=== PATIENT | female | born 1960 | race African-American/Black ===

== ENCOUNTER 2016-12-05 06:00 | Day surgery (SDC) | payer OTHER ==
[2016-12-02 14:13] VITALS: BMI 39.4
[2016-12-05] MEDS ORDERED: ePHEDrine SULFATE 50 MG/1 ML AMPULE ONE (07:15)
[2016-12-05] MEDS ORDERED: PROPOFOL 20 ML ONE ×4 (07:16)
[2016-12-05] MEDS ORDERED: SUCCINYLCHOLINE CHLORIDE 200 MG/10 ML VIAL ONE (07:16)
[2016-12-05] MEDS ORDERED: BUPIVACAINE HCL 0.25% 125 MG/50 ML VIAL ONE (07:18)
[2016-12-05] MEDS ORDERED: MIDAZOLAM HCL 2 MG/2 ML SINGLE DOSE VIAL ONE ×2 (07:18→07:50)
[2016-12-05] MEDS ORDERED: KETOROLAC TROMETHAMINE 30 MG/1 ML VIAL ONE (07:20)
[2016-12-05] MEDS ORDERED: LIDOCAINE HCL/PF 2% SDV 5ML VIAL ONE (07:20)
[2016-12-05] MEDS ORDERED: ONDANSETRON 4 MG/2 ML VIAL ONE (07:20)
[2016-12-05] MEDS ORDERED: ceFAZolin SODIUM 1 GM VIAL ONE (07:20)
[2016-12-05] MEDS ORDERED: BUPIVACAINE HCL/PF 0.25% (2.5MG/ML) 10 ML VIAL IJ ONE (08:22)
--- NOTE | 2016-12-05 08:57 | OP ---
Operative Note - Note: Operative Date: 12/05/16 Pre-Operative Diagnosis: right knee medial meniscal tear Operation: right knee arthroscopy with partial medial meniscectomy Post-Operative Diagnosis: Same as Pre-op Surgeon: Dave Monk Anesthesiologist/PIPE INSULATOR HELPER: Luigi Parry Anesthesia: Spinal Estimated Blood Loss (mls): 20 Operative Report Dictated: Yes
[2016-12-05] MEDS ORDERED: oxyCODONE HCL 5 MG TABLET PO PRN ×2 (09:57→10:01)
[2016-12-05] MEDS ORDERED: LACTATED RINGERS SOLUTION 1,000 ML IV SCH (10:00)
[2016-12-05] MEDS ORDERED: ONDANSETRON 4 MG/2 ML VIAL IVPUSH PRN (10:01)
[2016-12-05 10:04] VITALS: TEMP 97.9
[2016-12-05 11:34] VITALS: BP 122/78; PULSE 72
--- NOTE | 2016-12-05 15:58 | OP ---
DATE OF OPERATION: 12/05/2016 PREOPERATIVE DIAGNOSIS: Right knee medial meniscal tear. POSTOPERATIVE DIAGNOSIS: Right knee medial meniscal tear. PROCEDURE: Right knee arthroscopy with partial medial meniscectomy. SURGEON: Dave Monk MD AUTOMOTIVE PARTS COUNTER ASSISTANT: None. ANESTHESIA: Spinal. POSTOPERATIVE CONDITION: Stable. TOURNIQUET TIME: Twenty-six minutes. INDICATIONS: This is a pleasant 56-year-old female who has been suffering from medial knee pain. She was initially treated nonoperatively. However, her pain persisted and she changed her mind and wanted to pursue operative management. Operative risks were reviewed in detail including bleeding, infection, neurovascular injury, need for further surgery, postoperative pain and stiffness, progressive osteoarthritis. We discussed medical risks such as heart attack, stroke, DVT, PE and . We reviewed that the arthroscopy was used to treat the meniscus tear within the knee. There is some arthritis in the knee and this may continue to be symptomatic afterwards. We reviewed the use of perioperative DVT prophylaxis and perioperative antibiotic prophylaxis. I addressed all the patient's questions. She voiced understanding and elected to proceed. DESCRIPTION OF PROCEDURE: The patient was brought to the operating room where spinal anesthesia was administered. The patient was placed supine on the operating room table with care taken to pad all bony prominences. The right lower extremity was then prepped and draped in the usual sterile fashion. A preoperative dose of antibiotics was given and the usual timeout procedure was performed. The portal sites were then marked out and the skin was injected subcutaneously with 0.25% Marcaine. The limb was then elevated. A tourniquet was inflated to 250 mmHg. A lateral portal was now incised. The arthroscope was now passed into the knee. 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 Passing the arthroscope down to the notch demonstrated intact ACL and PCL. The arthroscope was then passed into medial compartment. Here, there was some streak wear along the medial femoral condyle. There was some slight fraying along the tibial surface cartilage as well. There was a complex tear extending throughout the body and posterior horn of the medial meniscus. Under spinal needle localization, a medial portal was now established. Utilizing meniscal biters as well as a shaver, this was debrided down to a stable base. The arthroscope was now passed into the lateral compartment. Here, there was some superficial fraying of the cartilaginous surfaces. The inner rim of the meniscus was frayed but no raji tear was identified. The probe was used to ensure the meniscus was stable. The inner rim was lightly touched with the shaver to debride the frayed surfaces. At this point, the excess fluid was drawn from the joint. The portals were sutured using 3-0 nylon. The tourniquet was let down. A compressive dressing was placed. The patient was transferred to the recovery room in stable condition. Francisca [id number]
== END 2016-12-05 12:00 | disposition home or self-care (01) ==
LOC: FASU 06:00
PROVIDERS: ATTEND Orthopaedic Surgery Sports Medicine
PROC: 0SBD4ZZ Excision of Left Knee Joint, Percutaneous Endoscopic Approach (ICD-10-PCS; 2016-12-05)
PROC: 0SBD4ZZ Excision of Left Knee Joint, Percutaneous Endoscopic Approach (ICD-10-PCS; principal; 2016-12-05 08:14)
DX: M23.221 Derangement of posterior horn of medial meniscus due to old tear or injury, right knee (principal); M23.303 Other meniscus derangements, unspecified medial meniscus, right knee
CPT/HCPCS: 94760